=== PATIENT | female | born 1940 | race Hispanic/Latino ===

== ENCOUNTER 2021-01-03 12:32 | Emergency (ER) | payer MEDICARE ==
[2021-01-03 13:17] VITALS: BP 128/63
[2021-01-03 13:55] LABS: Bilirubin,Urine NEG (Negative); Color,Urine Amber (Yellow)
--- NOTE | 2021-01-03 13:58 | Event Note ---
ED Screening Note ED Screening Note: left lower back pain and left flank pain 3 days ago occasional sharp pain states she has hx of kidney stones, states she was able to pass on its own no fever, n/v/d states yesterday had one episode of urinary incontinence and dysuria she denies any numbness or weakness has been able to control bladder This initial assessment/diagnostic orders/clinical plan/treatment(s) is/are subject to change based on patients health status, clinical progression and re- assessment by fellow clinical providers in the ED. Further treatment and workup at subsequent clinical providers discretion. Patient/guardian urged not to elope from the ED as their condition may be serious if not clinically assessed and managed. Initial orders include: labs, urine, CT abd pelvis
[2021-01-03 14:04] LABS: Blood,Urine SM (Negative); Mucus,Urine FEW /HPF
[2021-01-03 14:06] LABS: WBC,Urine > 182.0 /HPF (0.0-6.0)
[2021-01-03 14:18] LABS: Basophils # (Auto) 0.1 K/mm3 (0.0-0.1); Basophils % (Auto) 0.9 % (0.0-1.8); Eosinophils # (Auto) 0.1 K/mm3 (0.0-0.4); Eosinophils % (Auto) 0.9 % (0.0-4.3); Hematocrit 39.9 % (30.3-42.9); Hemoglobin 13.3 gm/dl (10.1-14.3); Lymphocytes # (Auto) 1.8 K/mm3 (1.2-5.4); Lymphocytes % (Auto) 18.3 % (13.4-35.0); Mean Corpuscular HGB Conc 33 % (30-34); Mean Corpuscular Volume 86 fl (79-97); Monocytes # (Auto) 0.8 K/mm3 (0.0-0.8); Monocytes % (Auto) 8.4 % (0.0-7.3); Platelet Count 260 K/mm3 (140-440); Red Blood Count 4.62 M/mm3 (3.65-5.03); Red Cell Distribution Width 15.5 % (13.2-15.2)
[2021-01-03 14:41] LABS: Calcium 9.4 mg/dL (8.4-10.2)
--- NOTE | 2021-01-03 14:59 | Cat Scan Report ---
CT ABDOMEN AND PELVIS WITHOUT CONTRAST INDICATION / CLINICAL INFORMATION: left flank pain, left lower back pain. TECHNIQUE: Axial CT images were obtained through the abdomen and pelvis without IV contrast. All CT scans at [facility] location are performed using CT dose reduction for ALARA by means of automated exposure control. COMPARISON: None available. FINDINGS: LOWER CHEST: Mild atelectasis in the right lung base. Few foci of centrilobular micronodules in the l eft lung base likely representing small airways infection or inflammation. Mild aortic valve calcific ation. Elevation of the right hemidiaphragm. HEPATOBILIARY: No significant abnormality. PANCREAS/SPLEEN/ADRENALS: No significant abnormality. GENITOURINARY: Focal hypodensity at the right interpolar region which is too small to definitely radha acterize, possible cyst. 3.7 cm left simple renal cyst at the interpolar region with adjacent smaller simple cyst. Ureters and bladder demonstrate no significant abnormality. No nephrolithiasis or obstr uctive uropathy.. GASTROINTESTINAL/MESENTERY: Diverticulosis coli without evidence of diverticulitis. No evidence of ac [place] appendicitis. No bowel obstruction or inflammation is appreciated. No free air or significant maynor e fluid. RETROPERITONEUM: No significant adenopathy. REPRODUCTIVE ORGANS: No significant abnormality. VASCULAR: Moderate atherosclerotic calcification without acute abnormality. BODY WALL: No significant abnormality. SKELETAL SYSTEM: No significant abnormality. IMPRESSION: 1. No acute abdominopelvic abnormality. 2. Small left simple renal cysts and a right renal hypodensity which is too small to definitely tee cterize, possible cyst. 3. Additional findings as above. Signer Name: Brady Britt MD Signed: 01/03/2021 2:55 PM Workstation Name: [id number]
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
== END 2021-01-03 17:26 | disposition home or self-care (01) ==
LOC: ED 12:32
DX: N12 Tubulo-interstitial nephritis, not specified as acute or chronic (principal); I10 Essential (primary) hypertension; E78.00 Pure hypercholesterolemia, unspecified; Z98.890 Other specified postprocedural states; Z79.899 Other long term (current) drug therapy; Z88.8 Allergy status to other drugs, medicaments and biological substances; Z90.710 Acquired absence of both cervix and uterus
CPT/HCPCS: 36415; 74176; 80053; 81001; 85025; 87086